=== PATIENT | female | born 1995 ===

== ENCOUNTER 2024-04-24 03:17 | Inpatient (IN) | payer OTHER ==
[~2024-04-24] VITALS: Ht 157.5 cm; Wt 65.8 kg
[2024-04-24] MEDS ORDERED: ROPivacaine PF 0.2% 200 ML IV ONE (11:31)
[2024-04-25] VITALS: BP 100/51; PULSE 81; TEMP 98
--- NOTE | 2024-04-25 02:23 | NUR ---
An Electronic Health Record (EHR) downtime event occurred during this patient's care. For legal medical record information generated during the downtime period, please reference the patient's legal medical record. Paper or scanned documentation has been incorporated into the legal medical record which is maintained in accordance [facility] Health Information Management (HIM) and record retention policies.
[2024-04-25] MEDS ORDERED: Phenylephrine/Mineral Oil/Petrolatum 57 GM TUBE RC PRN (03:30)
[2024-04-25] MEDS ORDERED: Mag/Al Hydrox/Simeth Susp 30 ML CUP PO PRN (03:30)
[2024-04-25] MEDS ORDERED: Naloxone 0.4 MG/ML VIAL IV PRN (03:30)
[2024-04-25] MEDS ORDERED: Witch Hazel 50% Pads Bulk TUB TP SCH (03:30)
[2024-04-25] MEDS ORDERED: Loratadine 10 MG TAB PO PRN (03:30)
[2024-04-25] MEDS ORDERED: Measles/Mumps/Rubella Virus Vaccine Live w Diluent 0.5 ML VIAL SQ SCH (03:30)
[2024-04-25] MEDS ORDERED: traZODone 50 MG TAB PO PRN (03:30)
[2024-04-25] MEDS ORDERED: oxyCODONE 5 MG TAB PO PRN (03:30)
[2024-04-25] MEDS ORDERED: Ibuprofen 600 MG TAB PO PRN (03:30)
[2024-04-25] MEDS ORDERED: Acetaminophen 500 MG TAB PO SCH (06:00)
[2024-04-25 06:45] VITALS: BP 90/51; PULSE 72; TEMP 98.6
[2024-04-25] MEDS ORDERED: Sennosides/Docusate 8.6-50 MG TAB PO SCH (08:00)
[2024-04-25] MEDS ORDERED: IBU600 MG PO (08:23)
[2024-04-25 19:20] VITALS: BP 103/75; PULSE 69; TEMP 9705
[2024-04-25] MEDS ORDERED: Magnes Hydrox (MOM) 80 MG/ML 30 ML CUP PO SCH (21:00)
[2024-04-26 07:40] VITALS: BP 111/70; PULSE 68; TEMP 98
--- NOTE | 2024-04-26 12:00 | NUR ---
Pt discharged at this time. discharge instructions given. pt verbalizes understanding. The patient ambulates out of hospital with and .
== END 2024-04-26 12:00 | disposition home or self-care (01) | DRG 807 ==
LOC: LDRO 03:17 → OB 03:30
PROVIDERS: ADMIT Obstetrics & Gynecology
PROC: 10E0XZZ Delivery of Products of Conception, External Approach (ICD-10-PCS; principal; 2024-04-24)
PROC: 0KQM0ZZ Repair Perineum Muscle, Open Approach (ICD-10-PCS; 2024-04-24)
DX: O69.81X0 Labor and delivery complicated by cord around neck, without compression, not applicable or unspecified (principal); Z37.0 Single live birth; Z3A.39 39 weeks gestation of pregnancy; O70.1 Second degree perineal laceration during delivery
CPT/HCPCS: J2795